=== PATIENT | female | born 1950 | race Caucasian/White ===

== ENCOUNTER → 2016-08-22 | Outpatient (CLI) | payer BC, MEDICARE ==
[~2016-08-22] MED LIST: ANEXSIA 7.5/3251 TA1 PO; CELEBREX PO; PROZAC PO; ZOFRAN PO
--- NOTE | ~2016-08-22 | CT4 ---
[facility] A Service of [facility] RADIOLOGY TEXT RESULTS PATIENT: SAILAJA MCGILL LOCATION: [facility] : 48 UNIT #: [id number] AGE: [address]: Bailee Donald MD SEX: F ORDER DR: [id number] [address] [address] [id number] O MR#: [id number] Acc #: [id number] NAME: SAILAJA MCGILL. : 1950 SEX: F STUDY DATE/TIME: 08/22/2016 15:24 UNIT: [facility] ROOM: STUDY DESCRIPTION: CT Abd and Pelv Wo Cont Attending Physician: Bailee Donald M.D. Referring Physician: Bailee Donald M.D. Ordering Physician: Bailee Donald M.D. Primary Care Physician: Bailee Donald M.D. MEDICAL IMAGING REPORT This report is preliminary unless electronic signature is present. EXAM CT of the abdomen and pelvis without contrast media HISTORY Hematuria and right flank pain for a few months. TECHNIQUE Transaxial imaging of the abdomen and pelvis was performed without contrast media. This CT exam was performed with one or more of the following radiation dose reduction techniques: Automatic exposure control, adjustment of mA and/or kV according to patient size, and iterative reconstruction. FINDINGS Scans through the lung bases show underlying chronic lung disease. There is marked scoliosis. There are atherosclerotic coronary artery calcifications. Scans through the liver show multiple hypodense, sharply circumscribed lesions. The largest of these is high under the diaphragm in the right lobe. It measures approximately 4 cm in diameter and has increased in size since the last study. It continues to have the characteristics of a benign cyst. There is mild intrahepatic and there is extrahepatic biliary dilatation. The common duct measures 15 mm in greatest diameter. The duct is dilated down to the head of the pancreas. The pancreas has a normal appearance. The spleen is normal. The adrenal glands are not enlarged. Both kidneys are normal. There is diffuse atherosclerotic disease present. There are advanced degenerative changes in the spine related to the scoliosis. Appendix is absent. Uterus is likewise absent. Distal small bowel loops are mildly dilated but this is present previously and the degree of dilatation is unchanged and there is no evidence of STS. [facility] A Service of [facility] RADIOLOGY TEXT RESULTS PATIENT: SAILAJA MCGILL LOCATION: [facility] : 48 UNIT #: [id number] AGE: [address]: Bailee Donald MD SEX: F ORDER DR: obstruction. Gas and fecal residue are seen throughout the colon to the rectal vault. Uterus is absent. Bladder is normal. Advanced multilevel degenerative disc and facet disease is present in the lumbar region. CONCLUSION 1. Status post cholecystectomy, hysterectomy and appendectomy. 2. Multiple hepatic cysts measuring up to 4 cm. These have increased in size and number since the last study but certainly are benign in character. 3. Interim cholecystectomy with extrahepatic dilatation down to the pancreatic head measuring about 15 mm in greatest diameter. No obvious stones identified and no adjacent inflammation is seen. 4. Mild small bowel dilatation particularly in the pelvis, but this is unchanged from prior studies and is likely physiologic. 5. Severe scoliosis and associated secondary degenerative changes. Dictated by... Floyd Menard M.D. THIS IS AN ELECTRONICALLY VERIFIED REPORT Floyd Menard M.D. at 08/27/2016 5:03 PM DUSTY/amarilys TD: 08/23/2016 01:42 JOB #: [id number] MEDICAL IMAGING REPORT Page 1 of 1
== END | disposition home or self-care (01) ==
LOC: SCT 07:54
DX: R31.9 Hematuria, unspecified (principal); K76.89 Other specified diseases of liver; K31.89 Other diseases of stomach and duodenum; M41.9 Scoliosis, unspecified; M47.816 Spondylosis without myelopathy or radiculopathy, lumbar region; Z90.710 Acquired absence of both cervix and uterus; Z90.49 Acquired absence of other specified parts of digestive tract
CPT/HCPCS: 74176